=== PATIENT | male | born 1960 | race African-American/Black ===

== ENCOUNTER 2016-08-17 10:55 | Emergency (ER) | payer MEDICAID ==
[~2016-08-17] VITALS: Ht 180.3 cm; Wt 81.6 kg
[2016-08-17 11:27] VITALS: BP 131/83
[2016-08-17] MEDS ORDERED: IBUPROFEN 800 MG TAB PO ONE (12:30)
== END 2016-08-17 12:47 | disposition home or self-care (01) ==
LOC: ER 10:55
DX: S02.2XXA Fracture of nasal bones, initial encounter for closed fracture (principal); S09.90XA Unspecified injury of head, initial encounter; Y04.8XXA Assault by other bodily force, initial encounter; Y93.I9 Activity, other involving external motion; Y99.8 Other external cause status; Y92.488 Other paved roadways as the place of occurrence of the external cause
CPT/HCPCS: 70160; 70450